=== PATIENT | female | born 1970 | race Caucasian/White ===

== ENCOUNTER 2018-04-11 09:29 | Emergency (ER) | payer OTHER ==
[2018-04-11] MEDS ORDERED: Ondansetron 4 MG/2 ML SDV IVPUSH ONE (10:36)
--- NOTE | 2018-04-11 10:39 | EDM.PDOC ---
ED HPI GENERAL MEDICAL PROBLEM - General Chief Complaint: Abdominal Pain Stated Complaint: NAUSA BACK PAIN Time Seen by Provider: 04/11/18 09:45 Source of Information: Reports: Patient History Limitations: Reports: No Limitations - History of Present Illness INITIAL COMMENTS - FREE TEXT/NARRATIVE: Pt arrived with left lower abdomanal pain. She is nauseated but she has not vomited. Onset: Gradual, Other ( on and off since Thursday. ) Duration: Hour(s): Location: Reports: Abdomen Associated Symptoms: Reports: Nausea/Vomiting, Other (abdomanal pain has moved from the rt to the left. 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: , 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 (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 Below) Other OB/BYN History: uterine ablation Musculoskeletal History: Reports: Fracture Other Musculoskeletal History: Fallopian tube springs/tubes - Past Surgical History GI Surgical History: Reports: Appendectomy, Cholecystectomy, Colonoscopy Female Surgical History: Reports: Other (See Below) Other Female Surgeries/Procedures: essure procedure Social & Family History - Family History Family Medical History: Noncontributory - Tobacco Use Smoking Status *Q: Never Smoker - Recreational Drug Use Recreational Drug Use: No ED ROS GENERAL - Review of Systems Review Of Systems: See Below Constitutional: Reports: No Symptoms, Decreased Appetite HEENT: Reports: No Symptoms Respiratory: Reports: No Symptoms Cardiovascular: Reports: No Symptoms Endocrine: Reports: No Symptoms GI/Abdominal: Reports: Abdominal Pain, Nausea : Reports: No Symptoms Musculoskeletal: Reports: No Symptoms ED EXAM, GI/ABD - Physical Exam Exam: See Below Text/Narrative:: Pt arrived with pain in the left lower abdoman mainly. She states this does come and go. She states that it reaches a level of a 6/ Her bms are normal and she has no urine symptoms. Exam Limited By: No Limitations General Appearance: Alert, Anxious, Moderate Distress Ears: Normal TMs Nose: Normal Inspection Throat/Mouth: Normal Inspection Head: Atraumatic Neck: Normal Inspection Respiratory/Chest: No Respiratory Distress Cardiovascular: Regular Rate, Rhythm GI/Abdominal Exam: Tender, Other (pt has left lower abdomanal tenderness without sig guarding. ) Rectal (Female) Exam: Deferred Back Exam: Normal Inspection Extremities: Normal Inspection Neurological: Alert, Oriented, Normal Cognition Psychiatric: Normal Affect Course - Vital Signs Last Recorded V/S: Last Vital Signs Temp 37.1 C 04/11/18 09:43 Pulse 76 04/11/18 13:12 Resp 14 04/11/18 13:12 BP 136/72 04/11/18 13:12 Pulse Ox 100 04/11/18 13:12 - Orders/Labs/Meds Orders: Active Orders 24 hr Category Date Time Status Abdomen Pelvis w Cont [CT] Stat Exams 04/11/18 10:45 Taken Pelvis Non OB Comp [US] Stat Exams 04/11/18 13:44 Ordered Transvaginal Non OB [US] Stat Exams 04/11/18 13:44 Ordered CHLAMYDIA/GC AMPLIFICATION Stat Lab 04/11/18 13:47 Ordered CULTURE URINE [RM] Stat Lab 04/11/18 10:38 Received UA W/MICROSCOPIC [URIN] Urgent Lab 04/11/18 10:15 Ordered Sodium Chloride 0.9% [Normal Saline] 1,000 ml Med 04/11/18 10:45 Active IV ASDIRECTED cefTRIAXone [Rocephin] 1 gm Med 04/11/18 15:45 Ordered Sodium Chloride 0.9% [Normal Saline] 50 ml IV ONETIME Medication Orders Sodium Chloride (Normal Saline) 1,000 mls @ 999 mls/hr IV ASDIRECTED ISAIAH Last Admin: 04/11/18 12:08 Dose: 999 mls/hr Ceftriaxone Sodium 1 gm/ (Sodium Chloride) 50 mls @ 100 mls/hr IV ONETIME ONE Stop: 04/11/18 16:14 Labs: Laboratory Tests 04/11/18 04/11/18 04/11/18 Range/Units 10:15 10:15 10:15 WBC 6.2 (4.5-11.0) K/uL RBC 5.12 (3.30-5.50) M/uL Hgb 14.7 D (12.0-15.0) g/dL Hct 42.9 (36.0-48.0) % MCV 84 (80-98) fL MCH 29 (27-31) pg MCHC 34 (32-36) % Plt Count 317 (150-400) K/uL Neut % (Auto) 60 (36-66) % Lymph % (Auto) 26 (24-44) % [place] % (Auto) 10 H (2-6) % Eos % (Auto) 4 (2-4) % Baso % (Auto) 1 (0-1) % Sodium 138 L (140-148) mmol/L Potassium 4.1 (3.6-5.2) mmol/L Chloride 104 (100-108) mmol/L Carbon Dioxide 26 (21-32) mmol/L Anion Gap 12.1 (5.0-14.0) mmol/L BUN 12 (7-18) mg/dL Creatinine 0.9 (0.6-1.0) mg/dL Est Cr Clr Drug Dosing 60.46 mL/min Estimated GFR (MDRD) > 60 (>60) Glucose 90 (74-106) mg/dL Calcium 8.1 L (8.5-10.1) mg/dL Total Bilirubin 0.4 D (0.2-1.0) mg/dL AST 26 (15-37) U/L ALT 33 (12-78) U/L Alkaline Phosphatase 79 (46-116) U/L C-Reactive Protein (0.0-0.3) mg/dL Total Protein 6.8 (6.4-8.2) g/dL Albumin 3.4 (3.4-5.0) g/dL Globulin 3.4 (2.3-3.5) g/dL Albumin/Globulin Ratio 1.0 L (1.2-2.2) Urine Color Yellow Urine Appearance Slightly cloudy Urine pH 5.0 (4.5-8.0) Ur Specific [place] 1.010 (1.008-1.030) Urine Protein Negative (NEGATIVE) mg/dL Urine Glucose (UA) Normal (NEGATIVE) mg/dL Urine Ketones Negative (NEGATIVE) mg/dL Urine Occult Blood Moderate (NEGATIVE) Urine Nitrite Negative (NEGATIVE) Urine Bilirubin Negative (NEGATIVE) Urine Urobilinogen Normal (NORMAL) mg/dL Ur Leukocyte Esterase Small (NEGATIVE) Urine RBC 0-5 (0-5) Urine WBC 5-10 H (0-5) Ur Epithelial Cells Rare Amorphous Sediment Not seen Urine Bacteria Moderate Urine Mucus Not seen 04/11/18 Range/Units 10:26 WBC (4.5-11.0) K/uL RBC (3.30-5.50) M/uL Hgb (12.0-15.0) g/dL Hct (36.0-48.0) % MCV (80-98) fL MCH (27-31) pg MCHC (32-36) % Plt Count (150-400) K/uL Neut % (Auto) (36-66) % Lymph % (Auto) (24-44) % [place] % (Auto) (2-6) % Eos % (Auto) (2-4) % Baso % (Auto) (0-1) % Sodium (140-148) mmol/L Potassium (3.6-5.2) mmol/L Chloride (100-108) mmol/L Carbon Dioxide (21-32) mmol/L Anion Gap (5.0-14.0) mmol/L BUN (7-18) mg/dL Creatinine (0.6-1.0) mg/dL Est Cr Clr Drug Dosing mL/min Estimated GFR (MDRD) (>60) Glucose (74-106) mg/dL Calcium (8.5-10.1) mg/dL Total Bilirubin (0.2-1.0) mg/dL AST (15-37) U/L ALT (12-78) U/L Alkaline Phosphatase (46-116) U/L C-Reactive Protein 0.38 H (0.0-0.3) mg/dL Total Protein (6.4-8.2) g/dL Albumin (3.4-5.0) g/dL Globulin (2.3-3.5) g/dL Albumin/Globulin Ratio (1.2-2.2) Urine Color Urine Appearance Urine pH (4.5-8.0) Ur Specific [place] (1.008-1.030) Urine Protein (NEGATIVE) mg/dL Urine Glucose (UA) (NEGATIVE) mg/dL Urine Ketones (NEGATIVE) mg/dL Urine Occult Blood (NEGATIVE) Urine Nitrite (NEGATIVE) Urine Bilirubin (NEGATIVE) Urine Urobilinogen (NORMAL) mg/dL Ur Leukocyte Esterase (NEGATIVE) Urine RBC (0-5) Urine WBC (0-5) Ur Epithelial Cells Amorphous Sediment Urine Bacteria Urine Mucus Meds: Medications Generic Name Dose Route Start Last Admin Trade Name Freq PRN Reason Stop Dose Admin Sodium Chloride 1,000 mls @ 999 mls/hr 04/11/18 10:45 04/11/18 12:08 Normal Saline IV 999 mls/hr ASDIRECTED ISAIAH Administration Ceftriaxone Sodium 1 gm/ 50 mls @ 100 mls/hr 04/11/18 15:45 Sodium Chloride IV 04/11/18 16:14 ONETIME ONE Discontinued Medications Generic Name Dose Route Start Last Admin Trade Name Freq PRN Reason Stop Dose Admin Ceftriaxone Sodium 1 gm/ 0 gm 04/11/18 15:42 Lidocaine HCl 2.1 ml IM 04/11/18 15:43 ONETIME ONE Sodium Chloride 80 mls @ 3.5 mls/sec 04/11/18 11:03 04/11/18 11:46 Normal Saline IV 04/11/18 11:04 3 mls/sec ONETIME ONE Administration Iopamidol 100 ml 04/11/18 11:15 04/11/18 11:46 Isovue-300 (61%) IV 04/11/18 12:00 100 ml . DIRECTED ISAIAH Administration Ondansetron HCl 4 mg 04/11/18 10:36 04/11/18 12:07 Zofran IVPUSH 04/11/18 10:37 4 mg ONETIME ONE Administration Sodium Chloride 10 ml 04/11/18 11:03 04/11/18 11:46 Saline Flush FLUSH 04/11/18 11:04 10 ml ONETIME ONE Administration - Re-Assessments/Exams Free Text/Narrative Re-Assessment/Exam: 04/11/18 15:46 cat scan of the abdoman was neg. The us showed some irregularity in the texture of the uterus and was super tender with the transvag. Pt was given rocephen 1 gm. Her wbc was normal. Departure - Departure Time of Disposition: 15:48 Disposition: Home, Self-Care 01 Condition: Fair Clinical Impression: Pelvic infection - Discharge Information Referrals: Marleen Earl PA [Primary Care Provider] - Forms: ED Department Discharge Care Plan Goals: flagyl 250mg tid for 10 days, [id number] bid for 10 days, follow up with regular dr in 1week. - My Orders Last 24 Hours: My Active Orders 04/11/18 10:15 UA W/MICROSCOPIC [URIN] Urgent 04/11/18 10:38 CULTURE URINE [RM] Stat 04/11/18 10:45 Abdomen Pelvis w Cont [CT] Stat Sodium Chloride 0.9% [Normal Saline] 1,000 ml IV ASDIRECTED 04/11/18 13:44 Pelvis Non OB Comp [US] Stat Transvaginal Non OB [US] Stat 04/11/18 13:47 CHLAMYDIA/GC AMPLIFICATION Stat 04/11/18 15:45 cefTRIAXone [Rocephin] 1 gm Sodium Chloride 0.9% [Normal Saline] 50 ml IV ONETIME - Assessment/Plan Last 24 Hours: My Active Orders 04/11/18 10:15 UA W/MICROSCOPIC [URIN] Urgent 04/11/18 10:38 CULTURE URINE [RM] Stat 04/11/18 10:45 Abdomen Pelvis w Cont [CT] Stat Sodium Chloride 0.9% [Normal Saline] 1,000 ml IV ASDIRECTED 04/11/18 13:44 Pelvis Non OB Comp [US] Stat Transvaginal Non OB [US] Stat 04/11/18 13:47 CHLAMYDIA/GC AMPLIFICATION Stat 04/11/18 15:45 cefTRIAXone [Rocephin] 1 gm Sodium Chloride 0.9% [Normal Saline] 50 ml IV ONETIME
[2018-04-11] MEDS ORDERED: Sodium Chloride 0.9% 1,000 ML IV SCH (10:45)
[2018-04-11] MEDS ORDERED: Sodium Chloride 0.9% 80 ML IV ONE (11:03)
[2018-04-11] MEDS ORDERED: Sodium Chloride 0.9% 10 ML Syringe FLUSH ONE (11:03)
[2018-04-11] MEDS ORDERED: Iopamidol 612 MG/ML 100 ML Bottle IV SCH (11:15)
[2018-04-11 13:13] VITALS: BP 136/72
[2018-04-11] MEDS ORDERED: cefTRIAXone 1 GM, Lidocaine 1% 2.1 ML IM ONE ×2 (15:42)
[2018-04-11] MEDS ORDERED: cefTRIAXone 1 GM in Sodium Chloride 0.9% 50 ML IV ONE (15:45)
== END 2018-04-11 17:07 | disposition home or self-care (01) ==
LOC: JP.ED 09:29
DX: N73.9 Female pelvic inflammatory disease, unspecified (principal); Z88.6 Allergy status to analgesic agent; Z88.0 Allergy status to penicillin; Z79.899 Other long term (current) drug therapy
CPT/HCPCS: 36415; 74177; 76830; 76856; 80053; 81001; 85025; 86140; 87086; 87110; 87140; 96361; 96365; 96372; 96375; 99284; J0696; J2405; J7030; J7050; Q9967; 87491; 87591

== ENCOUNTER 2018-05-17 06:22 | Day surgery (SDC) | payer OTHER ==
[2018-05-17] MEDS ORDERED: Sodium Chloride 0.9% 1,000 ML IV SCH (07:00)
[2018-05-17] MEDS ORDERED: Propofol 200 MG/20 ML SDV ONE (07:09)
[2018-05-17] MEDS ORDERED: Midazolam 1 MG/ML 2 ML SDV ONE (07:09)
[2018-05-17] MEDS ORDERED: fentaNYL 100 MCG/2 ML SDV ONE (07:09)
[2018-05-17 08:53] VITALS: BP 116/65
--- NOTE | 2018-05-17 09:59 | OR ---
DATE OF PROCEDURE: 05/17/2018 PROCEDURE: Colonoscopy. FINDINGS: Cecal polyp, 5 mm, completely removed using cold biopsy forceps. COMPLICATIONS: None. HUB ASSOCIATE: None. PREOPERATIVE DIAGNOSIS: Abdominal pain. POSTOPERATIVE DIAGNOSIS: Abdominal pain. RISKS: Risks, benefits, alternatives, and limitations including, but not limited to infection, bleeding, and perforation were all explained to the patient, who wished to proceed. PROCEDURE IN DETAIL: The patient was placed in left lateral decubitus position. Digital rectal exam was performed without abnormality. The scope was introduced and advanced atraumatically to the ileocecal valve. In the cecum itself, there was a 5-mm polyp, which was identified and completely removed using cold biopsy forceps. The scope was brought back to the ascending, transverse, descending colon, and retroflexed. No diverticulosis, no masses, no polyps, no inflammation or any other etiology. No abnormalities on retroflex. The patient tolerated the procedure well. Alonso Gerber MD /[id number]
== END 2018-05-17 09:15 | disposition home or self-care (01) ==
LOC: JP.SDS 06:22
PROVIDERS: ATTEND Surgery
DX: R10.9 Unspecified abdominal pain (principal); R11.0 Nausea; D12.0 Benign neoplasm of cecum
CPT/HCPCS: 45380; 81025; J2250; J2704; J3010; J7030; 88305

== ENCOUNTER 2019-12-06 18:27 | Emergency (ER) | payer OTHER ==
--- NOTE | 2019-12-06 19:47 | EDM.PDOC ---
ED HPI GENERAL MEDICAL PROBLEM - General Chief Complaint: Cardiovascular Problem Stated Complaint: HIGH BLOOD PRESSURE 215/90 Time Seen by Provider: 12/06/19 19:36 Source of Information: Reports: Patient, Family, RN Notes Reviewed History Limitations: Reports: No Limitations - History of Present Illness INITIAL COMMENTS - FREE TEXT/NARRATIVE: 49-year-old female presents emergency department a complaint of elevated blood pressure, she has felt lightheaded with chest pressure she does have a blood pressure machine at home systolically she was reading 215. By the time she arrived to the emergency department her blood pressure is now systolically 166 she feels significantly better the lightheadedness has resolved the chest pressure has resolved. She has no history of hypertension review of clinic records show 90% of the blood pressures less than 140 Chest Pain Score (Numeric/FACES): 5 Headache Pain Score (Numeric/FACES): 4 - Related Data Allergies Allergy/AdvReac Type Severity Reaction Status Date / Time codeine Allergy Cannot Verified 12/06/19 19:23 Remember hydrocodone Allergy Other Verified 12/06/19 19:23 Penicillins Allergy Rash Verified 12/06/19 19:23 Home Meds: Home Meds Lactobacillus Combo No.10 [Probiotic] 2 each PO DAILY 04/29/16 [History] Magnesium Oxide/Mag AA Chelate [Magnesium] 300 mg PO DAILY 04/29/16 [History] [place]-3 Fatty Acids [Fish Oil] 500 mg PO DAILY 04/29/16 [History] Acetaminophen [Tylenol Extra Strength] 500 mg PO ASDIRECTED PRN 05/17/18 [ History] Past Medical History HEENT History: Reports: Impaired Vision Other HEENT History: abcess on throat Cardiovascular History: Reports: High Cholesterol, Hypertension Gastrointestinal History: Reports: Colon Polyp 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: , 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 Musculoskeletal History: Reports: Fracture Other Musculoskeletal History: Fallopian tube springs/tubes Dermatologic History: Reports: None - Infectious Disease History Infectious Disease History: Reports: Chicken Pox - Past Surgical History Head Surgeries/Procedures: Reports: None HEENT Surgical History: Reports: Eye Surgery Cardiovascular Surgical History: Reports: None GI Surgical History: Reports: Appendectomy, Cholecystectomy, Colonoscopy Female Surgical History: Reports: Other (See Below) Other Female Surgeries/Procedures: essure procedure Musculoskeletal Surgical History: Reports: None Dermatological Surgical History: Reports: Skin Biopsy Social & Family History - Family History Family Medical History: Noncontributory - Tobacco Use Smoking Status *Q: Never Smoker Second Hand Smoke Exposure: No - Caffeine Use Caffeine Use: Reports: Coffee - Recreational Drug Use Recreational Drug Use: No ED ROS GENERAL - Review of Systems Review Of Systems: See Below Constitutional: Reports: No Symptoms HEENT: Reports: No Symptoms Respiratory: Reports: No Symptoms Cardiovascular: Reports: Chest Pain, Lightheadedness GI/Abdominal: Reports: No Symptoms ED EXAM, GENERAL - Physical Exam Exam: See Below Exam Limited By: No Limitations General Appearance: Alert, WD/WN, No Apparent Distress Respiratory/Chest: No Respiratory Distress, Lungs Clear, Normal Breath Sounds, No Accessory Muscle Use, Chest Non-Tender Cardiovascular: Regular Rate, Rhythm, No Murmur GI/Abdominal: Soft, Non-Tender Course - Vital Signs Last Recorded V/S: Last Vital Signs Temp 97.0 F 12/06/19 19:17 Pulse 78 12/06/19 20:11 Resp 15 12/06/19 20:11 BP 163/79 H 12/06/19 20:11 Pulse Ox 98 12/06/19 20:11 - Orders/Labs/Meds Labs: Laboratory Tests 12/06/19 12/06/19 Range/Units 19:56 19:56 WBC 10.5 (4.5-11.0) K/uL RBC 5.09 (3.30-5.50) M/uL Hgb 14.3 (12.0-15.0) g/dL Hct 43.0 (36.0-48.0) % MCV 85 (80-98) fL MCH 28 (27-31) pg MCHC 33 (32-36) % Plt Count 354 (150-400) K/uL Sodium 138 L (140-148) mmol/L Potassium 3.8 (3.6-5.2) mmol/L Chloride 103 (100-108) mmol/L Carbon Dioxide 26 (21-32) mmol/L Anion Gap 12.8 (5.0-14.0) mmol/L BUN 11 (7-18) mg/dL Creatinine 0.8 (0.6-1.0) mg/dL Est Cr Clr Drug Dosing 70.37 mL/min Estimated GFR (MDRD) > 60 (>60) Glucose 96 (74-106) mg/dL Calcium 8.5 (8.5-10.1) mg/dL Troponin I < 0.017 (0.000-0.056) ng/mL Departure - Departure Time of Disposition: 21:32 Disposition: Home, Self-Care 01 Condition: Fair Clinical Impression: Hypertension Qualifiers: Hypertension type: unspecified Qualified Code(s): I10 - Essential (primary) hypertension Instructions: How to Take Your Blood Pressure Referrals: Birgit Mireles PA-C [Primary Care Provider] - Forms: ED Department Discharge Additional Instructions: Recommend doing a blood pressure journal at home for the next couple weeks then follow-up with your primary for reevaluation, call or return to the emergency department for worsening of symptoms Sepsis Event Note - Evaluation Sepsis Screening Result: No Definite Risk - Focused Exam Vital Signs: Vital Signs Temp Pulse Resp BP Pulse Ox 12/06/19 20:11 78 15 163/79 H 98 12/06/19 19:35 79 16 166/79 H 98 12/06/19 19:24 80 16 176/68 H 98 12/06/19 19:17 97.0 F 92 18 188/100 H 99 Date Exam was Performed: 12/06/19 Time Exam was Performed: 21:31 - Assessment/Plan Plan: Assessment Acuity = acute Site and laterality = hypertension Etiology = unknown Manifestations = none Location of injury = Home Lab values = CBC, BMP, troponin all within normal limits Plan Did review lab work with her her blood pressure continued to decline while in the emergency department systolic in the 150s similar to what she had in the clinic earlier today discussed options she would like to do watchful waiting she is got a new blood pressure recording at home with a journal she did admit to eating [place] food which may have influenced her blood pressure secondary to the salt load This note was dictated using [email or web address] voice recognition software please call with any questions on syntax or grammar.
[2019-12-06 21:35] VITALS: BP 160/74; PULSE 81
== END 2019-12-06 21:53 | disposition home or self-care (01) ==
LOC: JP.ED 18:27
DX: I10 Essential (primary) hypertension (principal); Z88.5 Allergy status to narcotic agent; Z88.0 Allergy status to penicillin
CPT/HCPCS: 36415; 80048; 84484; 85027; 99285

== ENCOUNTER 2020-12-21 00:48 | Emergency (ER) | payer OTHER ==
[2020-12-21 01:03] VITALS: BP 157/80; PULSE 72
--- NOTE | 2020-12-21 01:14 | EDM.PDOC ---
ED HPI GENERAL MEDICAL PROBLEM - General Chief Complaint: General Stated Complaint: LEFT ARM PAIN Time Seen by Provider: 12/21/20 01:10 Source of Information: Reports: Patient, Old Records, RN History Limitations: Reports: No Limitations - History of Present Illness INITIAL COMMENTS - FREE TEXT/NARRATIVE: 50 yo female here with L arm and L shoulder aching that she awoke with tonight. She was concerned that this might represent heart pain so came to the ER after she took ASA 81 mg at home. She denies a hx of CAD. She denies nausea, SOB, or diaphoresis. Does not smoke. No DM. Onset: Today Onset Date: 12/21/20 Duration: Minutes: Location: Reports: Upper Extremity, Left Quality: Reports: Ache Severity: Moderate Improves with: Reports: None Worsens with: Reports: None Context: Reports: Other (unknown, does do a lot of typing. ) Associated Symptoms: Reports: No Other Symptoms. Denies: Chest Pain, Cough, Diaphoresis, Fever/Chills, Nausea/Vomiting, Rash, Shortness of Breath Treatments PULLER OVER: Reports: Aspirin Left Arm Pain Score (Numeric/FACES): 7 - Related Data Allergies Allergy/AdvReac Type Severity Reaction Status Date / Time codeine Allergy Cannot Verified 12/21/20 00:57 Remember hydrocodone Allergy Other Verified 12/21/20 00:57 Penicillins Allergy Rash Verified 12/21/20 00:57 Home Meds: Home Meds Lactobacillus Combo No.10 [Probiotic] 2 each PO DAILY 04/29/16 [History] Magnesium Oxide/Mag AA Chelate [Magnesium] 300 mg PO DAILY 04/29/16 [History] Acetaminophen [Tylenol Extra Strength] 500 mg PO ASDIRECTED PRN 05/17/18 [History] lisinopriL [Lisinopril] 10 mg PO DAILY 12/21/20 [History] Past Medical History HEENT History: Reports: Impaired Vision Other HEENT History: abcess on throat Cardiovascular History: Reports: High Cholesterol, Hypertension Gastrointestinal History: Reports: Colon Polyp 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: , 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 Musculoskeletal History: Reports: Fracture Other Musculoskeletal History: Fallopian tube springs/tubes Dermatologic History: Reports: None - Infectious Disease History Infectious Disease History: Reports: Chicken Pox - Past Surgical History Head Surgeries/Procedures: Reports: None HEENT Surgical History: Reports: Eye Surgery Cardiovascular Surgical History: Reports: None GI Surgical History: Reports: Appendectomy, Cholecystectomy, Colonoscopy Female Surgical History: Reports: Other (See Below) Other Female Surgeries/Procedures: essure procedure Musculoskeletal Surgical History: Reports: None Dermatological Surgical History: Reports: Skin Biopsy Social & Family History - Family History Family Medical History: No Pertinent Family History - Tobacco Use Tobacco Use Status *Q: Never Tobacco User - Caffeine Use Caffeine Use: Reports: None - Recreational Drug Use Recreational Drug Use: No ED ROS GENERAL - Review of Systems Review Of Systems: See Below Constitutional: Reports: No Symptoms HEENT: Reports: No Symptoms Respiratory: Reports: No Symptoms Cardiovascular: Reports: No Symptoms GI/Abdominal: Reports: No Symptoms : Reports: No Symptoms Musculoskeletal: Reports: Shoulder Pain (left, posteriorly), Arm Pain (L elbow and posterior shoulder) Skin: Reports: No Symptoms Neurological: Reports: No Symptoms ED EXAM, GENERAL - Physical Exam Exam: See Below Exam Limited By: No Limitations General Appearance: Alert, WD/WN, No Apparent Distress Eye Exam: Bilateral Eye: Normal Inspection Ears: Normal External Exam, Normal Canal, Hearing Grossly Normal Ear Exam: Bilateral Ear: Auricle Normal, Canal Normal Throat/Mouth: Normal Inspection, Normal Lips, Normal Oropharynx, Normal Voice, No Airway Compromise Head: Atraumatic, Normocephalic Neck: Normal Inspection Respiratory/Chest: No Respiratory Distress, Lungs Clear, Normal Breath Sounds, No Accessory Muscle Use Cardiovascular: Regular Rate, Rhythm, No Edema Extremities: Normal Inspection, Normal Range of Motion, No Pedal Edema, Arm Pain (tender over the L lateral epicondyle and posterior shoulder in the region of the L trapezius muscle. ). No: Non-Tender, Pedal Edema, Joint Swelling Neurological: Alert, Oriented, CN II-XII Intact, Normal Cognition, No Motor/Sensory Deficits Psychiatric: Normal Affect, Normal Mood Skin Exam: Warm, Dry, Intact, Normal Color, No Rash #1 Interpretation EKG Date: 12/21/20 Time: 01:05 Rhythm: NSR Rate (Beats/Min): 76 [place]: Normal P-Wave: Present QRS: Normal ST-T: Normal QT: Normal Comparison: No Change Course - Vital Signs Last Recorded V/S: Last Vital Signs Temp 36.7 C 12/21/20 00:57 Pulse 72 12/21/20 00:57 Resp 14 12/21/20 00:57 BP 157/80 H 12/21/20 00:57 Pulse Ox 100 12/21/20 00:57 - Orders/Labs/Meds Orders: Active Orders 24 hr Category Date Time Status Cardiac Monitoring [RC] .As Directed Care 12/21/20 01:14 Active EKG Documentation Completion [RC] ASDIRECTED Care 12/21/20 01:14 Active EKG 12 Lead [EK] Routine Ther 12/21/20 01:14 Ordered Departure - Departure Time of Disposition: :25 Disposition: Home, Self-Care 01 Condition: Good Clinical Impression: Left lateral epicondylitis - Discharge Information *PRESCRIPTION DRUG MONITORING PROGRAM REVIEWED*: No *COPY OF PRESCRIPTION DRUG MONITORING REPORT IN PATIENT ARACELI: No Instructions: Tennis Elbow, [id number] Referrals: Birgit Mireles PA-C [Primary Care Provider] - Forms: ED Department Discharge Additional Instructions: Ibuprofen and/or acetaminophen as needed for pain relief. Ice the area of tenderness at your left elbow for 15 minutes several times a day. Consider adding a tennis elbow strap if not improving and tighten it when doing any gripping type activity with the left hand. It works well to ice with a bathroom size Rah[place]al cup filled with water that you have frozen. Follow up with your provider if not improving as an injection with cortisone is sometimes helpful. Return as needed. Sepsis Event Note (ED) - Evaluation Sepsis Screening Result: No Definite Risk - Focused Exam Vital Signs: Vital Signs Temp Pulse Resp BP Pulse Ox 12/21/20 00:57 36.7 C 72 14 157/80 H 100 - My Orders Last 24 Hours: My Active Orders 12/21/20 01:14 Cardiac Monitoring [RC] .As Directed EKG Documentation Completion [RC] ASDIRECTED EKG 12 Lead [EK] Routine - Assessment/Plan Last 24 Hours: My Active Orders 12/21/20 01:14 Cardiac Monitoring [RC] .As Directed EKG Documentation Completion [RC] ASDIRECTED EKG 12 Lead [EK] Routine
== END 2020-12-21 01:34 | disposition home or self-care (01) ==
LOC: JP.ED 00:48
DX: M77.12 Lateral epicondylitis, left elbow (principal); I10 Essential (primary) hypertension; Z88.5 Allergy status to narcotic agent; Z88.0 Allergy status to penicillin; Z79.899 Other long term (current) drug therapy
CPT/HCPCS: 93005; 93010; 99283; 99283-25

== ENCOUNTER 2022-03-08 12:00 | Emergency (ER) | payer OTHER ==
[2022-03-08] MEDS ORDERED: Sodium Chloride 0.9% 1,000 ML IV STA (12:49)
[2022-03-08] MEDS ORDERED: Sodium Chloride 0.9% 10 ML Syringe FLUSH PRN (12:49)
[2022-03-08] MEDS ORDERED: fentaNYL 100 MCG/2 ML SDV IVPUSH ONE (12:51)
[2022-03-08] MEDS ORDERED: Ondansetron 4 MG/2 ML SDV IVPUSH ONE (12:51)
[2022-03-08] MEDS ORDERED: Sodium Chloride 0.9% 10 ML Syringe FLUSH ONE (12:57)
[2022-03-08] MEDS ORDERED: Iopamidol 612 MG/ML 100 ML Bottle IV SCH (13:00)
[2022-03-08] MEDS ORDERED: Sodium Chloride 0.9% 50 ML IV SCH (13:00)
[2022-03-08 13:25] LABS: TROPONIN I HIGH SENSITIVITY 5.4 pg/mL (<=60.3)
[2022-03-08 14:08] VITALS: BP 156/71; PULSE 101
== END 2022-03-08 14:57 | disposition home or self-care (01) ==
LOC: JP.ED 12:00
DX: R10.13 Epigastric pain (principal); E78.00 Pure hypercholesterolemia, unspecified; I10 Essential (primary) hypertension; Z88.0 Allergy status to penicillin; Z88.5 Allergy status to narcotic agent; Z79.899 Other long term (current) drug therapy
CPT/HCPCS: 36415; 74177; 80053; 81001; 83605; 83690; 84484; 85025; 96374; 96375; 99283; 99284-25; J2405; J3010; J3490; J7030; Q9967

== ENCOUNTER 2023-02-27 07:51 | Day surgery (SDC) | payer OTHER ==
[2023-02-27] MEDS ORDERED: Propofol 200 MG/20 ML SDV ONE (08:08)
[2023-02-27] MEDS ORDERED: fentaNYL 100 MCG/2 ML SDV ONE (08:08)
[2023-02-27] MEDS ORDERED: Midazolam 1 MG/ML 2 ML SDV ONE (08:08)
[2023-02-27] MEDS ORDERED: Sodium Chloride 0.9% 1,000 ML IV SCH (08:30)
[2023-02-27] MEDS ORDERED: Ondansetron 4 MG/2 ML SDV IVPUSH ONE (08:59)
[2023-02-27 11:07] VITALS: PULSE 75
[2023-02-27 11:08] VITALS: BP 95/65
== END 2023-02-27 11:05 | disposition home or self-care (01) ==
LOC: JP.SDS 07:51
PROVIDERS: ATTEND Surgery
DX: Z12.11 Encounter for screening for malignant neoplasm of colon (principal); D12.0 Benign neoplasm of cecum
CPT/HCPCS: 45380; 88305; J2250; J2405; J2704; J3010; J7030

== ENCOUNTER 2024-11-27 07:21 | Emergency (ER) | payer OTHER ==
[2024-11-27 07:39] VITALS: BP 158/74; PULSE 84
[2024-11-27 08:00] LABS: BASOPHILS ABSOLUTE AUTO 0.06 K/uL (0.00-0.10); BASOPHILS PERCENT AUTO 0.8 % (0.1-1.3); EOSINOPHILS ABSOLUTE AUTO 0.11 K/uL (0.00-0.40); EOSINOPHILS PERCENT AUTO 1.5 % (0.0-5.4); HEMATOCRIT 42.2 % (34.3-46.0); HEMOGLOBIN 14.7 g/dL (11.2-15.5); IMMATURE GRAN PERCENT AUTO 0.3 % (0.0-0.7); LYMPHOCYTES ABSOLUTE AUTO 1.88 K/uL (0.8-3.3); LYMPHOCYTES PERCENT AUTO 26.2 % (11.4-47.7); MEAN CORPUSCULAR HEMOGLOBIN 28.8 pg (31.6-35.5); MEAN CORPUSCULAR HGB CONC 34.8 g/dL (31.6-35.5); MEAN CORPUSCULAR VOLUME 82.6 fL (81.4-99.0); MONOCYTES ABSOLUTE AUTO 0.48 K/uL (0.20-0.90); MONOCYTES PERCENT AUTO 6.7 % (3.3-12.6); NEUTROPHILS ABSOLUTE AUTO 4.62 K/uL (1.0-7.6); NEUTROPHILS PERCENT AUTO 64.5 % (40.0-78.1); PLATELET COUNT,PLT 317 K/uL (130-375); RED BLOOD CELL COUNT 5.11 M/uL (3.77-5.24); WHITE BLOOD CELL COUNT,WBC 7.2 K/uL (3.2-11.0)
[2024-11-27 08:01] LABS: IMMATURE GRAN ABSOLUTE AUTO 0.02 K/uL (0.00-0.23)
[2024-11-27] MEDS: Alum Hydrox/Mag Hydrox/Simeth 15 ML, Lidocaine 2% 15 ML PO ONE (08:04)
[2024-11-27 08:21] LABS: A/G RATIO 1.1 (1.2-2.2); ALANINE AMINOTRANSFERASE,ALT 23 U/L (12-78); ALBUMIN 3.9 g/dL (3.4-5.0); ALKALINE PHOSPHATASE 100 U/L (46-116); ANION GAP 14.8 mmol/L (5.0-14.0); ASPARTATE AMNIOTRANSFERASE,AST 21 U/L (15-37); BILIRUBIN TOTAL 0.4 mg/dL (0.2-1.0); BLOOD UREA NITROGEN,BUN 14 mg/dL (7-18); CALCIUM 8.7 mg/dL (8.5-10.1); CARBON DIOXIDE,CO2 25 mmol/L (21-32); CHLORIDE,CL 103 mmol/L (100-108); CREATININE 0.9 mg/dL (0.6-1.0); EST CRCL DRUG DOSING (CG) 59.11 mL/min; ESTIMATED GFR 76 mL/min (>60); GLUCOSE RANDOM 95 mg/dL (74-106); POTASSIUM,K 3.8 mmol/L (3.6-5.2); PROTEIN TOTAL,TP 7.6 g/dL (6.4-8.2); SODIUM,NA 139 mmol/L (140-148)
[2024-11-27] MEDS: Ondansetron 4 MG/2 ML SDV IVPUSH ONE (08:27)
[2024-11-27] MEDS: Sodium Chloride 0.9% 1,000 ML IV ONE (08:29)
[2024-11-27 08:44] LABS: APPEARANCE,URINE CLEAR (CLEAR); BILIRUBIN,URINE NEGATIVE (NEGATIVE); COLOR,URINE YELLOW (YELLOW); GLUCOSE,URINE NEGATIVE (NEGATIVE); KETONES,URINE NEGATIVE (NEGATIVE); LEUKOCYTE ESTERASE,URINE NEGATIVE (NEGATIVE); NITRITE,URINE NEGATIVE (NEGATIVE); OCCULT BLOOD,URINE NEGATIVE (NEGATIVE); PROTEIN,URINE NEGATIVE (NEGATIVE); UROBILINOGEN,URINE 0.2 EU/dL (0.2-1.0)
[2024-11-27 08:51] LABS: AMORPHOUS SEDIMENT,URINE RARE; BACTERIA,URINE NOT SEEN; EPITHELIAL CELLS,URINE NOT SEEN; MUCUS,URINE NOT SEEN; RBC,URINE 0-5 (0-5); WBC,URINE 0-5 (0-5)
[2024-11-27] MEDS: Ketorolac 15 MG/ML SDV IVPUSH ONE ×2 (09:22→10:45)
[2024-11-27] MEDS: Cyclobenzaprine 10 MG Tab PO ONE (09:23)
== END 2024-11-27 11:55 | disposition home or self-care (01) ==
LOC: JP.ED 07:21
DX: R10.13 Epigastric pain (principal); I10 Essential (primary) hypertension; E78.00 Pure hypercholesterolemia, unspecified; Z90.49 Acquired absence of other specified parts of digestive tract; Z90.710 Acquired absence of both cervix and uterus; Z88.5 Allergy status to narcotic agent; Z88.0 Allergy status to penicillin; Z88.8 Allergy status to other drugs, medicaments and biological substances; Z79.899 Other long term (current) drug therapy
CPT/HCPCS: 36415; 74176; 80053; 81001; 83690; 85025; 96374; 96375; 99284; A9270; J1885; J2405; J7030

== ENCOUNTER 2025-02-26 08:55 | Emergency (ER) | payer OTHER ==
[2025-02-26 10:13] LABS: BASOPHILS ABSOLUTE AUTO 0.06 K/uL (0.00-0.10); BASOPHILS PERCENT AUTO 0.8 % (0.1-1.3); EOSINOPHILS ABSOLUTE AUTO 0.24 K/uL (0.00-0.40); EOSINOPHILS PERCENT AUTO 3.2 % (0.0-5.4); HEMOGLOBIN 15.4 g/dL (11.2-15.5); IMMATURE GRAN ABSOLUTE AUTO 0.02 K/uL (0.00-0.23); IMMATURE GRAN PERCENT AUTO 0.3 % (0.0-0.7); MEAN CORPUSCULAR HEMOGLOBIN 29.2 pg (31.6-35.5); MEAN CORPUSCULAR HGB CONC 33.5 g/dL (31.6-35.5); MEAN CORPUSCULAR VOLUME 87.1 fL (81.4-99.0); MONOCYTES ABSOLUTE AUTO 0.54 K/uL (0.20-0.90); MONOCYTES PERCENT AUTO 7.2 % (3.3-12.6); NEUTROPHILS ABSOLUTE AUTO 4.55 K/uL (1.0-7.6); NEUTROPHILS PERCENT AUTO 60.5 % (40.0-78.1); PLATELET COUNT,PLT 329 K/uL (130-375); RED BLOOD CELL COUNT 5.28 M/uL (3.77-5.24); WHITE BLOOD CELL COUNT,WBC 7.5 K/uL (3.2-11.0)
[2025-02-26 10:16] LABS: APPEARANCE,URINE CLEAR (CLEAR); BILIRUBIN,URINE NEGATIVE (NEGATIVE); COLOR,URINE YELLOW (YELLOW); GLUCOSE,URINE NEGATIVE (NEGATIVE); KETONES,URINE NEGATIVE (NEGATIVE); LEUKOCYTE ESTERASE,URINE NEGATIVE (NEGATIVE); NITRITE,URINE NEGATIVE (NEGATIVE); OCCULT BLOOD,URINE NEGATIVE (NEGATIVE); PH,URINE 5.5 (5.0-8.0); PROTEIN,URINE NEGATIVE (NEGATIVE); UROBILINOGEN,URINE 0.2 EU/dL (0.2-1.0)
[2025-02-26 10:24] LABS: AMORPHOUS SEDIMENT,URINE NOT SEEN; BACTERIA,URINE NOT SEEN; EPITHELIAL CELLS,URINE FEW; MUCUS,URINE NOT SEEN; RBC,URINE 0-5 (0-5); WBC,URINE 0-5 (0-5)
[2025-02-26] MEDS: Dexamethasone 4 MG/ML SDV IVPUSH ONE (10:24)
[2025-02-26] MEDS: Ondansetron 4 MG/2 ML SDV IVPUSH ONE (10:24)
[2025-02-26] MEDS: Sodium Chloride 0.9% 1,000 ML IV ONE (10:24)
[2025-02-26] MEDS: Ketorolac 15 MG/ML SDV IVPUSH ONE (10:24)
[2025-02-26 10:33] LABS: A/G RATIO 1.1 (1.2-2.2); ALANINE AMINOTRANSFERASE,ALT 29 U/L (12-78); ALBUMIN 4.3 g/dL (3.4-5.0); ALKALINE PHOSPHATASE 118 U/L (46-116); ASPARTATE AMNIOTRANSFERASE,AST 20 U/L (15-37); BILIRUBIN TOTAL 0.3 mg/dL (0.2-1.0); BLOOD UREA NITROGEN,BUN 9 mg/dL (7-18); CALCIUM 9.3 mg/dL (8.5-10.1); CARBON DIOXIDE,CO2 25 mmol/L (21-32); CHLORIDE,CL 104 mmol/L (100-108); CREATININE 0.9 mg/dL (0.6-1.0); EST CRCL DRUG DOSING (CG) 59.11 mL/min; ESTIMATED GFR 76 mL/min (>60); GLUCOSE RANDOM 94 mg/dL (74-106); POTASSIUM,K 4.3 mmol/L (3.6-5.2); PROTEIN TOTAL,TP 8.2 g/dL (6.4-8.2); SODIUM,NA 139 mmol/L (140-148)
[2025-02-26 10:35] LABS: ANION GAP 14.3 mmol/L (5.0-14.0)
[2025-02-26] MEDS: traMADol 50 MG Tab PO ONE (11:32)
[2025-02-26] MEDS: Cyclobenzaprine 10 MG Tab PO ONE (12:48)
[2025-02-26 12:59] VITALS: BP 112/59; PULSE 61
== END 2025-02-26 13:00 | disposition home or self-care (01) ==
LOC: JP.ED 08:55
DX: G43.909 Migraine, unspecified, not intractable, without status migrainosus (principal); I10 Essential (primary) hypertension; E78.00 Pure hypercholesterolemia, unspecified; Z90.49 Acquired absence of other specified parts of digestive tract; Z88.0 Allergy status to penicillin; Z88.5 Allergy status to narcotic agent; Z88.8 Allergy status to other drugs, medicaments and biological substances; Z79.899 Other long term (current) drug therapy
CPT/HCPCS: 36415; 70450; 80053; 81001; 85025; 96374; 96375; 99284; A9270; J1100; J1885; J2405; J7030